=== PATIENT | male | born 1985 | race American Indian/Alaskan Native ===

== ENCOUNTER 2018-08-14 18:51 | Emergency (ER) | payer SELFPAY ==
[2018-08-14 19:10] VITALS: BP 160/103
--- NOTE | 2018-08-14 19:10 | Emergency Department Report ---
Blank Doc - Documentation Documentation: 33 y/o old male that is agitated. Can't keep still.
== END 2018-08-14 20:35 | disposition left against medical advice (07) ==
LOC: ED 18:51
DX: R07.89 Other chest pain (principal); Z53.21 Procedure and treatment not carried out due to patient leaving prior to being seen by health care provider
CPT/HCPCS: 93005; 93010